=== PATIENT | male | born 1995 | race Caucasian/White ===

== ENCOUNTER 2016-03-31 13:31 | Emergency (ER) | payer BC, OTHER ==
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
[2016-03-31 17:15] VITALS: BP 152/92
== END 2016-03-31 16:18 | disposition home or self-care (01) ==
LOC: ED 13:31
DX: J32.8 Other chronic sinusitis (principal); B97.89 Other viral agents as the cause of diseases classified elsewhere
CPT/HCPCS: 99281

== ENCOUNTER 2017-03-01 13:22 | Day surgery (SDC) | payer BC, OTHER ==
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
[~2017-03-01 13:22] MED LIST: Buffered Lidocaine 0.9% SYRIN* 5 ML/SYR SYRINGE INTRADERM ONE; Dexamethasone IV* 4 MG/ML 1 ML (4 MG) IV SLOW PU ONE; Famotidine IV* 10 MG/ML 2 ML (20 mg) IV ONE
[2017-03-01] MEDS ORDERED: Dexamethasone IV* 4 MG/ML 1 ML (4 MG) ONE (13:49)
[2017-03-01] MEDS ORDERED: ceFAZolin 2 GM PREMIX (*) 2 GM/50 ML BAG IVPB ONE (13:49)
[2017-03-01] MEDS ORDERED: Famotidine IV* 10 MG/ML 2 ML (20 mg) ONE (13:49)
[2017-03-01] MEDS ORDERED: oxyCODONE/Acetamin 5/325 MG* TAB PO PRN (14:47)
[2017-03-01] MEDS ORDERED: PROCHLORPERAZINE INJ 5 MG/ML 2 ML VIAL IV PRN (14:47)
[2017-03-01] MEDS ORDERED: HYDROcodone/ACETAMIN 5-325 MG* 1 TAB PO PRN (14:47)
[2017-03-01] MEDS ORDERED: fentaNYL* 50 MCG/ML 2 ML VIAL (100 MCG VIAL) IV PRN (14:47)
[2017-03-01] MEDS ORDERED: Mivacurium Chloride* 20 MG/10 ML VIAL IV ONE (15:05)
[2017-03-01] MEDS ORDERED: fentaNYL* 50 MCG/ML 2 ML VIAL (100 MCG VIAL) ONE ×2 (15:05→18:21)
[2017-03-01] MEDS ORDERED: Propofol* 10 MG/ML 20 ML BTL IV PUSH ONE (15:05)
[2017-03-01] MEDS ORDERED: Lidocaine 2% PF * 5 ML VIAL ONE (15:05)
[2017-03-01] MEDS ORDERED: Midazolam* 1 MG/ML 5 ML VIAL (5 MG) ONE (15:05)
[2017-03-01] MEDS ORDERED: ROPIVACAINE 5 MG/ML 30 ML BTL (0.5%) ONE (15:07)
[2017-03-01] MEDS ORDERED: Bupivacaine 0.25% SDV* 30 ML ONE (16:23)
[2017-03-01] MEDS ORDERED: EPHEDrine (Pressors)* 50 MG/ML VIAL ONE (17:17)
[2017-03-01] MEDS ORDERED: Ondansetron INJ* 2 MG/ML VIAL ONE (18:26)
[2017-03-01 19:56] VITALS: BP 150/82
--- NOTE | 2017-03-16 01:49 | OP ---
CC: Dr. Ramsey * DATE OF OPERATION: 03/01/17 - [facility] DATE OF : 89 SURGEON: Elvira Polk MD BUSINESS SUPPORT MANAGER: KARI Quiros ANESTHESIOLOGIST: Dr. Pearl. ANESTHESIA: General, interscalene block. PRE-OP DIAGNOSIS: Right shoulder instability. POST-OP DIAGNOSIS: Right shoulder instability with a SLAP tear. OPERATIVE PROCEDURE: 1. Right shoulder arthroscopic labral repair. 2. Subpectoral biceps tenodesis. COMPLICATIONS: None. ESTIMATED BLOOD LOSS: Minimal. 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 He has failed conservative management. He has had recurrent subluxation episodes and pain. Risks and benefits of surgery were discussed at length and included but not limited to bleeding, infection, damage to nerves, vessels, surrounding structures, wound nonhealing, persistent pain, need for surgery, scarring, stiffness, incomplete relief of symptoms and risks of anesthesia. DESCRIPTION OF PROCEDURE: The patient was greeted in the preoperative area by the attending surgeon. The correct extremity was marked and consent was confirmed. The patient was brought back to the operating suite, where he was placed in supine position on the operating table. He then underwent interscalene nerve block which he tolerated without difficulty. He underwent general anesthesia with endotracheal intubation after which he was positioned in the left lateral decubitus position. An axillary roll was placed and secured with pegs. The right shoulder was then prepped and draped in the usual sterile fashion beginning with chlorhexidine soap, scrub, and alcohol wipe and a final prep with ChloraPrep. The shoulder was suspended with 10 pounds of traction. After appropriate surgical pause indicating side, site, procedure, and administration of antibiotics, the standard postero-lateral portal was made sharply with an 11 blade. The scope was introduced into the joint and the joint was examined. There was abundant hyperemia, erythema in the capsule and anterior interval. There is evidence of a flap tear that extended posteriorly from the 10 o'[address] position all the way anteriorly to the 6 o'clock position with displaced labrum. The biceps had abundant spraying and was torn at the superior labrum. The lower anterior portal was made using needle localization and 8-mm cannula was placed and then a second cannula was placed superiorly in the interval. The shaver was then used to debride back the unstable superior labrum. The biceps was then tenotomized for later tenodesis. The undersurface of the rotator cuff was found to be intact. The labrum again was found to be totally detached anteriorly. The attention was directed to the labrum. There was an evidence of a bony piece that was moderate in size in the labrum that was detached. This was debrided back to short amount. There was bleeding evident. The glenoid was also prepared in usual fashion with the elevators and the rasp, and shaver. The capsule was also rasped with a double-sided rasp. The labrum was fully detached and mobilized. Drive- through sign was evident at this time as well. After the glenoid surface as well as the capsule was prepared, the first anchor was placed inferiorly at 5:30 position with excellent purchase. The sutures were then passed in a horizontal mattress configuration and tried to grab around the bony piece especially inferior, this was passed with horizontal mattress and tied down using arthroscopic knot tying technique. Second anchor was placed at the 4:30 position, again passed in a similar fashion. This helped to restore the bony piece with stable length of the shoulder. After this was passed in a horizontal mattress and tied down, a third one was passed anteriorly at the 3 o'clock position in a simple fashion. This allowed for methodist of the labrum. The attachments were then directed posteriorly and there was no full thickness tear. There was inflammation and erythema. The head was found to be in the center into the joint and determined to be no further anchors were needed. The wounds were copiously irrigated with sterile saline. Attention was directed to the biceps. The bed was air-planed to the right side. The anterior shoulder was prepped again with ChloraPrep. A 15-blade was used to make an incision in line with the biceps tendon. The soft tissues were carefully dissected using Metzenbaum until the fascia was identified and the remainder of the dissection was done bluntly. The pec was elevated superiorly, the biceps was brought through the wound, the occipital groove was prepared in usual fashion using electrocautery device and the rasp as well as an osteotome for good bony bleeding bed. The Q- Fix anchor was then used to drill unicortically and the anchor was passed with excellent purchase. The sutures were then passed through the tendon in a Feliberto- Benigno type configuration. The biceps stump was excised and shuttled back to the wound. The wounds were copiously irrigated with sterile saline. The portals were closed with 3-0 nylon. The anterior wound was closed in layers with 2-0 Vicryl and 3-0 Monocryl. Sterile dressings were applied. The anterior wound was injected with 20 cc of 0.25% Marcaine plain. A Cryo/Cuff and UltraSling were applied. He was awoken from anesthesia and transferred to PACU in stable condition. POSTOPERATIVE PLAN: He will be nonweightbearing. He will be in a sling for 4 to 5 weeks. He will be discharged on pain medications as well as antibiotics. I will see the patient back in 10 to 14 days. DVT prophylaxis was considered, but deferred due to no previous personal or family history. [id number]/[facility] #: [id number] [place]
== END 2017-03-01 19:59 | disposition home or self-care (01) ==
LOC: OREAST 13:22
PROVIDERS: ATTEND Orthopaedic Surgery
DX: M25.311 Other instability, right shoulder (principal); G89.18 Other acute postprocedural pain; S43.491A Other sprain of right shoulder joint, initial encounter; X58.XXXA Exposure to other specified factors, initial encounter; Y92.9 Unspecified place or not applicable; Y93.59 Activity, other involving other sports and athletics played individually
CPT/HCPCS: C1776; J0690; J1100; J2250; J2405; J2704; J2795; J3010